=== PATIENT | female | born 1940 | race Caucasian/White ===

== ENCOUNTER 2017-06-26 16:56 | Observation (INO) | payer MEDICARE, BC ==
[2017-06-26] MEDS ORDERED: Acetaminophen TAB* 325 MG PO ONE (17:39)
[2017-06-26] MEDS ORDERED: NS 0.9% 1000 ML* 1,000 ML IV ONE (17:39)
[2017-06-26] MEDS ORDERED: Ondansetron INJ* 2 MG/ML VIAL IV ONE (17:46)
--- NOTE | 2017-06-26 18:12 | RAD ---
INDICATION: Headache, prior trauma last evening. COMPARISON: Comparison is made with a prior CT of the brain from May 01, 2005. TECHNIQUE: Contiguous axial sections of the brain were obtained from the skull base to the vertex without contrast. FINDINGS: The ventricles, cisterns and sulci are enlarged consistent with age-related atrophy. No significant focal abnormality or mass effect is seen. There is no evidence for hemorrhage. No significant focal osseous abnormality is seen. The visualized portion of the paranasal sinuses and mastoid air cells appear clear. IMPRESSION: NO EVIDENCE FOR ACUTE INTRACRANIAL ABNORMALITY.
--- NOTE | 2017-06-26 18:16 | RAD ---
INDICATION: Fever. COMPARISON: Comparison is made with a prior study from November 03 2006. TECHNIQUE: Dual-energy PA and lateral views of the chest were obtained. FINDINGS: The heart is within normal limits in size. Mediastinal and hilar contours appear within normal limits. The lungs are clear. No pleural effusion is present. IMPRESSION: NO EVIDENCE FOR ACTIVE CARDIOPULMONARY DISEASE.
[2017-06-26 18:34] LABS: Hematocrit 38 % (35-47); Hemoglobin 13.1 g/dl (12.0-16.0); Mean Corpuscular HGB Conc 34 g/dl (31-36); Mean Corpuscular Hemoglobin 30 pg (27-31); Mean Corpuscular Volume 88 fL (80-97); Mean Platelet Volume 10 um3 (7.4-10.4); Red Blood Count 4.36 10^6/ul (4.0-5.4); Red Cell Distribution Width 13 % (10.5-15); White Blood Count 4.8 10^3/ul (3.5-10.8)
[2017-06-26 18:36] LABS: Comments Flag Yes
[2017-06-26 18:37] LABS: Albumin 3.5 g/dL (3.2-5.2); BUN/Creatinine Ratio 21.4 (8-20); Calcium 8.3 mg/dL (8.6-10.3); EGFR African American 105.2 (>60); EGFR Non-African American 81.8 (>60); Globulin 3.1 g/dL (2-4); Potassium 3.6 mmol/L (3.5-5.0); Total Protein 6.6 g/dL (6.4-8.9)
[2017-06-26 18:38] LABS: Add Diff/Slide Review? Slide Review Added
[2017-06-26] MEDS ORDERED: Vancomycin(*) 1,000 MG in NS 0.9% 250 ML* 250 ML IVPB ONE (20:31)
[2017-06-26] MEDS ORDERED: Vancomycin(*) 1,000 MG ADVAN IVPB ONE (20:39)
[2017-06-26] MEDS: NS 0.9% 1000 ML* 2,000 ML IV ONE (20:46)
[2017-06-26 20:53] LABS: Urine Bacteria Absent (Absent); Urine Bilirubin Negative (Negative); Urine Glucose Negative (Negative); Urine Nitrite Negative (Negative)
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
[2017-06-26] MEDS ORDERED: Ondansetron INJ* 2 MG/ML VIAL IV PRN (21:04)
[2017-06-26] MEDS ORDERED: Acetaminophen TAB* 325 MG PO PRN (21:04)
[2017-06-26] MEDS ORDERED: NS 0.9% 1000 ML* 1,000 ML IV SCH (21:15)
[2017-06-26 21:37] LABS: Add on Test ED Complete
[2017-06-26 21:56] LABS: C Reactive Protein 162.58 mg/L (< 5.00)
--- NOTE | 2017-06-26 21:58 | RAD ---
INDICATION: Right shoulder pain. TECHNIQUE: 4 views of the right shoulder were obtained. FINDINGS: The bones are in normal alignment. No fracture is seen. There is mild osteoarthritic change in the acromioclavicular and glenohumeral joints. IMPRESSION: MILD OSTEOARTHRITIC CHANGE.
[2017-06-26] MEDS ORDERED: cefTRIAXone VIAL(*) 1,000 MG in NS 0.9% 50 ML* 50 ML IVPB SCH (22:00)
[2017-06-26 22:47] LABS: Erythrocyte Sed Rate 39 mm/Hr (0-40)
[2017-06-26 22:51] LABS: Fibrinogen 377 mg/dL (110.8-404.3)
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
[2017-06-26] MEDS ORDERED: Zosyn per Pharmacy* NOTE FOLLOW UP SCH (23:00)
[2017-06-27] MEDS: ZOSYN 3.375 GM Q8H per EXTENDED INFUSION IVPB SCH ×4 (01:37→10:25)
[2017-06-27] MEDS ORDERED: Thyroid TAB* 15 MG PO SCH (06:00)
[2017-06-27 06:57] LABS: Comments Flag Yes; Hematocrit 33 % (35-47); Hemoglobin 11.4 g/dl (12.0-16.0); Mean Corpuscular HGB Conc 35 g/dl (31-36); Mean Corpuscular Hemoglobin 30 pg (27-31); Mean Corpuscular Volume 88 fL (80-97); Red Blood Count 3.74 10^6/ul (4.0-5.4); Red Cell Distribution Width 13 % (10.5-15); White Blood Count 3.1 10^3/ul (3.5-10.8)
[2017-06-27 06:58] LABS: Add Diff/Slide Review? Manual Diff Added
[2017-06-27 07:04] LABS: BUN/Creatinine Ratio 22.2 (8-20); Calcium 7.6 mg/dL (8.6-10.3); EGFR African American 118.8 (>60); EGFR Non-African American 92.4 (>60); Potassium 3.4 mmol/L (3.5-5.0)
[2017-06-27 07:43] LABS: Immature Granulocytes 5 % (0-9); Neutrophil % 73 % (38-83)
[2017-06-27 07:46] LABS: Add Path Review? YES
[2017-06-27 07:51] LABS: RBC Morphology Normal (Normal)
[2017-06-27 08:24] VITALS: BP 103/56
--- NOTE | 2017-06-27 15:12 | PN ---
Hospitalist Progress Note Pt discharged after resolution of all symptoms, hemodynamic stability, resolution of fever. Likely viral illness including possible influenza with false negative viral swab(outside window for tamiflu) vs gastroenteritis. Discharge summary dictated.
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
[2017-06-28 14:35] LABS: Schistocytes ABSENT
== END 2017-06-27 11:25 | disposition home or self-care (01) ==
LOC: ED 16:56 → INTOOBSV 21:00 → MERGE 21:00 → MED 21:00
PROVIDERS: ADMIT Internal Medicine; ATTEND Internal Medicine
DX: B34.9 Viral infection, unspecified (principal); D69.6 Thrombocytopenia, unspecified; R50.9 Fever, unspecified; E03.9 Hypothyroidism, unspecified; R51 Headache; M35.00 Sjogren syndrome, unspecified; L40.50 Arthropathic psoriasis, unspecified
CPT/HCPCS: 36415; 70450; 71020; 80048; 80053; 81003; 81015; 83605; 85025; 85049; 85060; 85362; 85384; 85610; 85652; 85730; 86140; 87040; 87086; 87502; 93005; 94760; 96365; 96367; 96375; 99291; A9270-GY; G0378; J0696; J2405; J2543; J3370

== ENCOUNTER → 2020-01-09 10:13 | Day surgery (SDC) | payer MEDICARE, BC ==
[~2020-01-09 10:13] MED LIST: Buffered Lidocaine 1% SYRIN* 1 ML/SYRINGE INTRADERM ONE; Bupivacaine 0.25% SDV PF* 10 ML VIAL INJ ONE; Lactated Ringers 1000 ML Bag* 1,000 ML IV SCH; Midazolam* 1 MG/ML 2 ML VIAL (2 MG) ONE; Propofol* 10 MG/ML 20 ML BTL ONE; ceFAZolin 2 GM PREMIX in ORs 2 GM/50 ML BAG ONE; fentaNYL* 50 MCG/ML 2 ML VIAL (100 MCG VIAL) ONE
[2020-01-09 14:44] VITALS: BP 126/68
== END | disposition home or self-care (01) ==
LOC: OR 10:13
PROVIDERS: ATTEND Plastic Surgery
DX: G56.01 Carpal tunnel syndrome, right upper limb (principal); E03.9 Hypothyroidism, unspecified; M19.90 Unspecified osteoarthritis, unspecified site; J30.89 Other allergic rhinitis; M41.9 Scoliosis, unspecified
CPT/HCPCS: J0690; J2250; J2704; J3010; J3490